=== PATIENT | male | born 1955 | race Caucasian/White ===

== ENCOUNTER 2016-09-08 15:26 | Emergency (ER) | payer OTHER ==
[~2016-09-08] VITALS: Ht 185.4 cm; Wt 96.9 kg
[~2016-09-08 15:26] MED LIST: CLON.5 PO; PAXI20TA26 PO; PAXI30TA7 PO; TRAZ50TA78 PO
[2016-09-08 15:41] VITALS: BP 135/88; PULSE 93; RESP 16; TEMP 97.6; O2SAT 99
[2016-09-08] MEDS ORDERED: VANCOMYCIN INJ 1,000 MG in SODIUM CHLOR 0.9% 250 ML INJ 250 ML IV ONE (16:15)
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
[2016-09-08 16:20] VITALS: RESP 16; O2SAT 95
--- NOTE | 2016-09-08 16:24 | RADHPO ---
EXAM DATE/TIME: 09/08/2016 16:10 [facility] COMPARISON: No previous studies available for comparison. INDICATIONS : Chest pain irradiating through neck. MEDICAL HISTORY : None. SURGICAL HISTORY : None. ENCOUNTER: Initial ACUITY: 1 day PAIN SCORE: 5/10 LOCATION: Bilateral chest FINDINGS: The cardiac silhouette is normal in transverse diameter. There is subsegmental atelectasis in the lef t base. There is no evidence of pneumonia. No pleural effusions are identified. CONCLUSION: Subsegmental atelectasis left base. Ascencion Augustine MD on September 08, 2016 at 16:22 Board Certified Radiologist. This report was verified electronically.
[2016-09-08 16:31] LABS: AUTOMATED NEUTROPHIL # 5.2 TH/MM3 (1.8-7.7); BASOPHIL % 0.5 % (0.0-2.0); EOSINOPHIL # 0.2 TH/MM3 (0-0.4); EOSINOPHIL % 2.3 % (0.0-4.0); HEMATOCRIT 46.3 % (39.0-51.0); HEMO FLAGS DIFF FINAL; LYMPHOCYTE # 1.8 TH/MM3 (1.0-4.8); MEAN CORPUSCULAR HEMOGLOBIN 29.1 PG (27.0-34.0); MEAN CORPUSCULAR HGB CONC 33.1 % (32.0-36.0); MONO % 7.5 % (0.0-8.0); NEUT % 66.7 % (16.0-70.0); PLATELET COUNT 196 TH/MM3 (150-450); RED BLOOD COUNT 5.26 MIL/MM3 (4.50-5.90); RED CELL DISTRIBUTION WIDTH 13.4 % (11.6-17.2); WHITE BLOOD COUNT 7.8 TH/MM3 (4.0-11.0)
[2016-09-08 16:44] VITALS: BP 135/90; PULSE 82; RESP 16; O2SAT 95
[2016-09-08 16:45] LABS: CHLORIDE 106 MEQ/L (98-107); POTASSIUM 3.7 MEQ/L (3.5-5.1); SODIUM (NA) 140 MEQ/L (136-145)
[2016-09-08 16:50] LABS: ANION GAP 9 MEQ/L (5-15); APTT (PATIENT) 27.4 SEC (24.3-30.1); BICARBONATE 25.2 MEQ/L (21.0-32.0); BLOOD UREA NITROGEN 21 MG/DL (7-18); PROTHROMBIN TIME - PATIENT 11.4 SEC (9.8-11.6)
[2016-09-08 16:53] LABS: ALT (GPT) 38 U/L (12-78); AST (GOT) 18 U/L (15-37); GLOMERULAR FILTRATION RATE 68 ML/MIN (>89)
[2016-09-08 16:55] LABS: TOTAL BILIRUBIN ADULT 0.6 MG/DL (0.2-1.0)
[2016-09-08 16:56] LABS: ALKALINE PHOSPHATASE 53 U/L (45-117)
[2016-09-08 17:18] LABS: CREATINE KINASE 71 U/L (39-308)
[2016-09-08] MEDS ORDERED: IOHEXOL 350 MG/ML 10 ML VIAL (for RAD DIAG) IV ONE (17:25)
[2016-09-08 17:29] VITALS: BP 105/68; PULSE 80; RESP 16; O2SAT 98
--- NOTE | 2016-09-08 17:36 | RADHPO ---
EXAM DATE/TIME: 09/08/2016 17:13 [facility] COMPARISON: No previous studies available for comparison. INDICATIONS : Right sided neck pain with lump today. IV CONTRAST: 75 cc Omnipaque 350 (iohexol) IV RADIATION DOSE: 14.18 CTDIvol (mGy) MEDICAL HISTORY : Hypertension. SURGICAL HISTORY : None. ENCOUNTER: Initial ACUITY: 1 day PAIN SCALE: 5/10 LOCATION: Right neck TECHNIQUE: Volumetric scanning of the neck was performed. Using automated exposure control and adjustment of th e mA and/or kV according to patient size, radiation dose was kept as low as reasonably achievable to obtain optimal diagnostic quality images. FINDINGS: There are no loculated fluid collections in the neck to suggest abscess. There is some mild skin thic kening inferiorly on the right and minimal subcutaneous fat stranding that could represent a mild ani lulitis. No pathologically enlarged lymph nodes in the neck. No airway obstructing lesions or foreign bodies. Visualized paranasal sinuses are clear. CONCLUSION: 1. Questionable minimal skin thickening and subcutaneous edematous changes in the lower right neck. N o abscess or adenopathy. Remainder of exam unremarkable. Kevon Jonas MD on September 08, 2016 at 17:28 Board Certified Radiologist. This report was verified electronically.
[2016-09-08] MEDS ORDERED: BACT800T5 PO (17:58)
[2016-09-08] MEDS ORDERED: CLIN1CAP5 PO (17:58)
--- NOTE | 2016-09-10 07:04 | EKG ---
Date Performed: 09/08/2016 Time Performed: 16:18:42 PTAGE: 61 years EKG: Sinus rhythm Left axis deviation IV conduction defect Abnormal ECG PREVIOUS TRACING : 08/31/2007 08.58 Compared to prior tracing no significant change DOCTOR: Stephen Hicks Interpretating Date/Time 09/10/2016 07:01:29
== END 2016-09-08 18:22 | disposition home or self-care (01) ==
LOC: PHED 15:26
DX: L03.221 Cellulitis of neck (principal); R07.9 Chest pain, unspecified; R06.02 Shortness of breath; R42 Dizziness and giddiness; I10 Essential (primary) hypertension; E78.00 Pure hypercholesterolemia, unspecified; R94.31 Abnormal electrocardiogram [ECG] [EKG]
CPT/HCPCS: 70491; 71010; 80053; 82550; 84484; 85025; 85610; 85730; 93005; 96365; 99285; J3370; J7050; Q9967

== ENCOUNTER → 2016-10-14 | Outpatient (CLI) | payer OTHER ==
[~2016-10-14] MED LIST changes: +BACT800T5 PO; +CLIN1CAP5 PO; -CLON.5 PO; -PAXI20TA26 PO; -PAXI30TA7 PO; -TRAZ50TA78 PO
[2016-10-14 09:20] LABS: ALKALINE PHOSPHATASE 52 U/L (45-117); ALT (GPT) 42 U/L (12-78); ANION GAP 6 MEQ/L (5-15); AST (GOT) 19 U/L (15-37); BLOOD UREA NITROGEN 20 MG/DL (7-18); CHLORIDE 104 MEQ/L (98-107); GLOMERULAR FILTRATION RATE 64 ML/MIN (>89); GLUCOSE,FASTING 110 MG/DL (74-99); HDL CHOLESTEROL 41.9 MG/DL (40.0-60.0); LDL CHOLESTEROL 101 MG/DL (0-99); POTASSIUM 4.1 MEQ/L (3.5-5.1); SODIUM (NA) 138 MEQ/L (136-145)
[2016-10-14 09:45] LABS: BLOOD, URINE NEG (NEG); GLUCOSE,URINE NEG (NEG); KETONE, URINE NEG (NEG); MUCUS URINE FEW /lpf (OCC); NITRITE,URINE NEG (NEG); PH, URINE 5.5 (5.0-8.5); URINE COLOR YELLOW (YELLW/STRAW)
[2016-10-14 14:01] LABS: HEMOGLOBIN A1a 1.2 %; HEMOGLOBIN A1b 0.8 %; HEMOGLOBIN Ao 85.6 %; HEMOGLOBIN F 1.1 %; HEMOGLOBIN P3 3.6 %
== END ==
LOC: CLAB 08:29
PROVIDERS: ATTEND Family Medicine
DX: I10 Essential (primary) hypertension (principal); E78.5 Hyperlipidemia, unspecified; R73.02 Impaired glucose tolerance (oral); Z12.5 Encounter for screening for malignant neoplasm of prostate
CPT/HCPCS: 36415; 80053; 80061; 81001; 83036; 84153

== ENCOUNTER → 2017-03-24 | Outpatient (CLI) | payer BC ==
[2017-03-24 09:58] LABS: ANION GAP 5 MEQ/L (5-15); AST (GOT) 18 U/L (15-37); BICARBONATE 28.3 MEQ/L (21.0-32.0); BLOOD UREA NITROGEN 25 MG/DL (7-18); CHLORIDE 103 MEQ/L (98-107); GLOMERULAR FILTRATION RATE 67 ML/MIN (>89); GLUCOSE,FASTING 114 MG/DL (74-99); POTASSIUM 4.6 MEQ/L (3.5-5.1); SODIUM (NA) 136 MEQ/L (136-145)
[2017-03-24 10:05] LABS: ALKALINE PHOSPHATASE 61 U/L (45-117); ALT (GPT) 47 U/L (12-78); HDL CHOLESTEROL 37.9 MG/DL (40.0-60.0); LDL CHOLESTEROL 111 MG/DL (0-99); LDL CHOLESTEROL DIRECT 122 MG/DL (0-99); TOTAL BILIRUBIN ADULT 0.9 MG/DL (0.2-1.0)
== END ==
LOC: CLAB 09:00
PROVIDERS: ATTEND Family Medicine
DX: I10 Essential (primary) hypertension (principal); E78.5 Hyperlipidemia, unspecified
CPT/HCPCS: 36415; 80053; 80061; 83721